=== PATIENT | male | born 1940 | race Caucasian/White ===

== ENCOUNTER → 2017-09-22 | Outpatient (CLI) | payer MEDICARE | END | disposition home or self-care (01) | LOC: PCVCCLINIC 13:58 | DX: E78.5 Hyperlipidemia, unspecified (principal); Z86.711 Personal history of pulmonary embolism; Z79.01 Long term (current) use of anticoagulants; Z79.899 Other long term (current) drug therapy | CPT/HCPCS: 80061; G0463 ==

== ENCOUNTER → 2017-10-18 | Outpatient (CLI) | payer MEDICARE | END | disposition home or self-care (01) | LOC: PCVCIMAG 14:33 | DX: I25.10 Atherosclerotic heart disease of native coronary artery without angina pectoris (principal); E78.5 Hyperlipidemia, unspecified; I10 Essential (primary) hypertension; E83.59 Other disorders of calcium metabolism; I26.99 Other pulmonary embolism without acute cor pulmonale | CPT/HCPCS: 93325; 93351 ==